=== PATIENT | male | born 1995 | race Caucasian/White ===

== ENCOUNTER 2023-04-12 11:34 | Emergency (ER) | payer OTHER ==
[~2023-04-12] VITALS: Ht 177.8 cm; Wt 95.3 kg
[2023-04-12] MEDS ORDERED: ONDANSETRON HCL/PF 4 MG/2 ML VIAL ONE (11:58)
[2023-04-12] MEDS ORDERED: FAMOTIDINE/PF INJ 20 MG/2 ML VIAL IV ONE (11:58)
[2023-04-12] MEDS: IV NS 0.9% 1,000 ML BAG IV ONE (12:19)
[2023-04-12] MEDS: FAMOTIDINE/PF INJ 20 MG/2 ML VIAL IV ONE (12:19)
[2023-04-12] MEDS: ONDANSETRON HCL/PF 4 MG/2 ML VIAL IVP ONE (12:19)
[2023-04-12 12:28] LABS: BASOPHILS % (AUTO) 0.2 % (0.0-2.0); EOSINOPHILS % (AUTO) 0.1 % (0.0-6.0); HEMATOCRIT 50 % (39-51); HEMOGLOBIN 16.7 g/dL (13.5-17.5); MEAN CORPUSCULAR HEMOGLOBIN 29 PG (26.0-33.0); MEAN CORPUSCULAR HGB CONC 34 g/dl (31.0-36.0); MEAN CORPUSCULAR VOLUME 85 fL (80-96); MONOCYTES # (AUTO) 0.9 K/uL (0.1-1.30); MONOCYTES % (AUTO) 6.2 % (2.0-12.0); NEUTROPHILS # (AUTO) 12.3 K/uL (1.8-8.9); NEUTROPHILS % (AUTO) 86.5 % (43.0-81.0); PLATELET COUNT (AUTO) 398 K/uL (150-450); RED BLOOD CELL COUNT(AUTO) 5.87 MIL/uL (4.5-6.0); RED CELL DISTRIBUTION WIDTH 13.6 % (11.5-15.0); WHITE BLOOD COUNT (AUTO) 14.2 K/uL (4.3-11.0)
[2023-04-12 12:48] LABS: ALBUMIN 5.1 g/dL (3.4-5.0); BILIRUBIN,DIRECT 0.3 mg/dL (0.0-0.2); BILIRUBIN,TOTAL 1.7 mg/dL (0.2-1.0); CREATININE 1.1 mg/dL (0.6-1.3); POTASSIUM 3.3 mmol/L (3.5-5.1)
[2023-04-12 13:46] VITALS: BP 121/81; TEMP 98.2; O2SAT 97
== END 2023-04-12 13:47 | disposition home or self-care (01) ==
LOC: ER 11:38
DX: R11.10 Vomiting, unspecified (principal); F41.9 Anxiety disorder, unspecified; F32.A Depression, unspecified; Z88.8 Allergy status to other drugs, medicaments and biological substances
CPT/HCPCS: 99284; 96374; 96361; 96375; 85025; 80048; 83690; 80076; 36415; J3490; J2405; J7030